=== PATIENT | male | born 1970 | race African-American/Black ===

== ENCOUNTER 2016-10-28 07:22 | Inpatient (IN) | payer MEDICAID ==
[~2016-10-28] VITALS: Ht 195.6 cm; Wt 93.6 kg
--- NOTE | 2016-10-28 07:50 | Emergency Room Report ---
History of Present Illness General Chief Complaint: General Complaint Source: Patient, EMS Present Illness HPI Patient has a history of bipolar disorder CHF and asthma. Patient also has history hypertension. Patient presents emergency department today complaining of acute onset of chest pain. He states that he's had chest pain for a few days. He was seen at [facility] where he was admitted per his report. He states that he had a negative workup and was discharged. However they did not discharge him with any medications. He has been homeless since then. He complains of bilateral leg swelling. Complains of some shortness of breath and chest discomfort now. Denies any fever nausea vomiting diarrhea chills. Symptoms noted to be moderate to severe. Patient was brought in by paramedics.No other modifying factors. No other associated signs and symptoms. No other complaints were noted. Allergies: Coded Allergies: HYDROMORPHONE (Verified Allergy, Unknown, 10/28/16) Patient History Past Medical History: HTN, CHF, asthma, psych hx Past Surgical History: none Pertinent Family History: none Social History: Reports: alcohol use, smoking Reviewed Nursing Documentation: PMH: Agreed, PSxH: Agreed Nursing Documentation-PMH Past Medical History: No History, Except For Hx Hypertension: Yes Hx Asthma: Yes Review of Systems All Other Systems: negative except mentioned in HPI Physical Exam Vital Signs Date Time Temp Pulse Resp B/P Pulse Ox O2 Delivery O2 Flow Rate FiO2 10/28/16 07:07 96.8 97 16 131/98 100 Room Air Sp02 EP Interpretation: reviewed, normal General Appearance: normal inspection, well appearing, no apparent distress, alert Head: atraumatic Eyes: bilateral eye normal inspection ENT: normal ENT inspection, hearing grossly normal, normal voice Neck: normal inspection, full range of motion, supple, no bony tend Respiratory: normal inspection, lungs clear, normal breath sounds, no respiratory distress, no retraction, no wheezing Cardiovascular #1: regular rate, rhythm, no edema Gastrointestinal: normal inspection, normal bowel sounds, non tender, soft, no guarding, no hernia Genitourinary: no CVA tenderness Musculoskeletal: back normal, normal range of motion, swelling - Bilateral lower extremity Neurologic: normal inspection, alert, responsive, speech normal Psychiatric: normal inspection, judgement/insight normal, depressed affect Skin: normal inspection, normal color, no rash Medical Decision Making Diagnostic Impression: Primary Impression: ACS (acute coronary syndrome) Additional Impression: Acute CHF (congestive heart failure) ER Course Patient presented to the emergency department today complaining of chest pain. Differential diagnoses include acute coronary syndrome, pulmonary embolism, pneumothorax, chest wall pain, pleurisy, pericarditis, acute anxiety reaction , acute CHF just to name a few. Given the severity of the patient's presentation I felt this is a highly complex patient. This patient required extensive workup. CBC, chemistry, EKG, chest x-ray, cardiac enzymes, liver profile were all obtained. 12-lead EKG performed for nontraumatic chest pain. PQRS documentation: EKG was performed. Please refer to below for interpretation. Patient laboratory workup shows elevated BNP. Patient's chest x-ray shows evidence of congestive heart failure. Given patient's symptoms at the patient require admission. Case was discussed in detail with Dr. Mujica. Patient will be admitted to telemetry for further treatment. Labs Test 10/28/16 08:09 White Blood Count 5.2 K/UL (4.8-10.8) Red Blood Count 4.29 M/UL (4.70-6.10) Hemoglobin 11.4 G/DL (14.2-18.0) Hematocrit 38.3 % (42.0-52.0) Mean Corpuscular Volume 89 FL (80-99) Mean Corpuscular Hemoglobin 26.6 PG (27.0-31.0) Mean Corpuscular Hemoglobin Concent 29.7 G/DL (32.0-36.0) Red Cell Distribution Width 17.4 % (11.6-14.8) Platelet Count 226 K/UL (150-450) Mean Platelet Volume 6.3 FL (6.5-10.1) Neutrophils (%) (Auto) 54.7 % (45.0-75.0) Lymphocytes (%) (Auto) 33.0 % (20.0-45.0) Monocytes (%) (Auto) 9.1 % (1.0-10.0) Eosinophils (%) (Auto) 0.8 % (0.0-3.0) Basophils (%) (Auto) 2.4 % (0.0-2.0) Urine Color Yellow Urine Appearance Clear Urine pH 6 (4.5-8.0) Urine Specific [place] 1.020 (1.005-1.035) Urine Protein 3+ (NEGATIVE) Urine Glucose (UA) Negative (NEGATIVE) Urine Ketones Negative (NEGATIVE) Urine Occult Blood Negative (NEGATIVE) Urine Nitrite Negative (NEGATIVE) Urine Bilirubin Negative (NEGATIVE) Urine Urobilinogen 4 MG/DL (0.0-1.0) Urine Leukocyte Esterase Negative (NEGATIVE) Urine RBC 0-2 /HPF (0 - 0) Urine WBC 0-2 /HPF (0 - 0) Urine Squamous Epithelial Cells Occasional /LPF Urine Bacteria Occasional /HPF (NONE) Sodium Level 139 mEQ/L (135-145) Potassium Level 4.7 mEQ/L (3.4-4.9) Chloride Level 101 mEQ/L (98-107) Carbon Dioxide Level 25 mEQ/L (20-30) Anion Gap 13 (5-15) Blood Urea Nitrogen 25 mg/dL (7-23) Creatinine 1.0 mg/dL (0.7-1.2) Estimat Glomerular Filtration Rate > 60 mL/min (>60) Glucose Level 88 mg/dL (74-106) Calcium Level 9.5 mg/dL (8.6-10.2) Total Bilirubin 0.8 mg/dL (0.0-1.2) Aspartate Amino Transf (AST/SGOT) 40 U/L (5-40) Alanine Aminotransferase (ALT/SGPT) 19 U/L (3-41) Alkaline Phosphatase 119 U/L (40-129) Total Creatine Kinase 521 U/L (38-174) Creatine Kinase MB 4.2 ng/mL (< 6.7) Creatine Kinase MB Relative Index 0.8 Troponin I < 0.30 ng/mL (<=0.30) Pro-B-Type Natriuretic Peptide 2616 pg/mL (0-125) Total Protein 7.9 g/dL (6.6-8.7) Albumin 4.2 g/dL (3.5-5.2) Globulin 3.7 g/dL Albumin/Globulin Ratio 1.1 (1.0-2.7) Lipase 39 U/L (< 60) Urine Opiates Screen Negative (NEGATIVE) Urine Barbiturates Screen Negative (NEGATIVE) Phencyclidine (PCP) Screen Negative (NEGATIVE) Urine Amphetamines Screen Positive (NEGATIVE) Urine Benzodiazepines Screen Negative (NEGATIVE) Urine Cocaine Screen Negative (NEGATIVE) Urine Marijuana (THC) Screen Positive (NEGATIVE) EKG Diagnostic Results Rate: normal Rhythm: NSR ST Segments: no acute changes Rhythm Strip Diag. Results EP Interpretation: yes Rate: 99 Rhythm: NSR, no PVC's, no ectopy Chest X-Ray Diagnostic Results Chest X-Ray Diagnostic Results : Chest X-Ray Ordered: Yes # of Views/Limited/Complete: 1 View Indication: Chest Pain EP Interpretation: Yes Interpretation: no consolidation, no pneumothorax, other - pul congestion Impression: Other - chf Interpreting ER Provider: Electronically signed by Patt Matta MD Last Vital Signs Date Time Temp Pulse Resp B/P Pulse Ox O2 Delivery O2 Flow Rate FiO2 10/28/16 07:07 96.8 97 16 131/98 100 Room Air Status: improved Disposition: ADMITTED INPATIENT Condition: Serious PATT MATTA M.D. Oct 28, 2016 07:50
[2016-10-28] MEDS ORDERED: FUROSEMIDE20 M1 ORAL (08:10)
[2016-10-28] MEDS ORDERED: SIMVASTATIN20 MG ORAL (08:10)
[2016-10-28] MEDS ORDERED: ASPIRIN81 MG ORAL (08:10)
[2016-10-28] MEDS ORDERED: LISINOPRIL20 MG ORAL (08:10)
[2016-10-28] MEDS ORDERED: RISPERDAL1 MG PO (08:10)
[2016-10-28] MEDS ORDERED: CARVEDILOL25 MG ORAL (08:10)
[2016-10-28 08:28] VITALS: BP 124/92
[2016-10-28 08:34] LABS: BASOPHILS % (AUTO) 2.4 % (0.0-2.0); EOSINOPHILS % (AUTO) 0.8 % (0.0-3.0); MEAN CORPUSCULAR HEMOGLOBIN 26.6 PG (27.0-31.0); MEAN CORPUSCULAR HGB CONC 29.7 G/DL (32.0-36.0); MEAN CORPUSCULAR VOLUME 89 FL (80-99); MEAN PLATELET VOLUME 6.3 FL (6.5-10.1); MONOCYTES % (AUTO) 9.1 % (1.0-10.0); NEUTROPHILS % (AUTO) 54.7 % (45.0-75.0); PLATELET COUNT 226 K/UL (150-450); RED BLOOD COUNT 4.29 M/UL (4.70-6.10); RED CELL DISTRIBUTION WIDTH 17.4 % (11.6-14.8); WHITE BLOOD COUNT 5.2 K/UL (4.8-10.8)
[2016-10-28 08:46] LABS: APPEARANCE,URINE CLEAR; KETONES,URINE NEGATIVE (NEGATIVE); LEUKOCYTE ESTERASE ,URINE NEGATIVE (NEGATIVE); NITRITE,URINE NEGATIVE (NEGATIVE); PH,URINE 6 (4.5-8.0); PROTEIN,URINE 3+ (NEGATIVE); UROBILINOGEN,URINE 4 MG/DL (0.0-1.0)
[2016-10-28 08:48] LABS: ALANINE AMINOTRANSFERASE 19 U/L (3-41); ALBUMIN/GLOBULIN RATIO 1.1 (1.0-2.7); ANION GAP 13 (5-15); ASPARTATE AMINO TRANSFERASE 40 U/L (5-40); CALCIUM 9.5 mg/dL (8.6-10.2); CARBON DIOXIDE 25 mEQ/L (20-30); CHLORIDE 101 mEQ/L (98-107); GLOMERULAR FILTRATION RATE > 60 mL/min (>60); HEMOLYSIS 42; LIPASE 39 U/L (< 60); POTASSIUM 4.7 mEQ/L (3.4-4.9); SODIUM 139 mEQ/L (135-145); TOTAL PROTEIN 7.9 g/dL (6.6-8.7)
[2016-10-28 08:56] LABS: TROPONIN I < 0.30 ng/mL (<=0.30)
[2016-10-28 09:06] LABS: CKMB 4.2 ng/mL (< 6.7)
[2016-10-28 09:14] LABS: BACTERIA,URINE OCCASIONAL /HPF; RBC,URINE 0-2 /HPF (0 - 0); SQUAMOUS EPITHELIAL CELL,UR OCCASIONAL /LPF (NONE/OCC); WBC,URINE 0-2 /HPF (0 - 0)
[2016-10-28] MEDS ORDERED: Nitroglycerin 2% oint pkt TOPIC ONE (10:00)
[2016-10-28] MEDS ORDERED: Nitroglycerin Subl 0.4mg tab (Bottle Of 25) SL PRN (10:15)
[2016-10-28] MEDS ORDERED: Ketorolac 30mg Inj IV PRN (10:15)
[2016-10-28] MEDS ORDERED: Enalaprilat 2.5mg/2ml Inj IV PRN (10:15)
[2016-10-28] MEDS ORDERED: Diltiazem 25mg/5ml IV PRN (10:15)
[2016-10-28] MEDS ORDERED: Miralax 17gm pkt ORAL PRN (10:15)
[2016-10-28] MEDS ORDERED: DuoNeb 0.5-3(2.5)mg/3ml neb HHN PRN (10:15)
--- NOTE | 2016-10-28 12:02 | Diagnostic Imaging Report ---
Indication: PAIN Technique: One view of the chest Comparison: none Findings: The heart is enlarged. Lungs and pleural spaces are clear. Impression: Cardiomegaly No acute process
[2016-10-28 12:03] VITALS: BP 124/100
[2016-10-28 13:27] VITALS: BP 127/98
--- NOTE | 2016-10-28 14:56 | History and Physical ---
History of Present Illness General Date patient seen: Oct 28, 2016 Reason for Hospitalization: General Complaint Present Illness HPI 45 year old male with history of bipolar disorder CHF and asthma, hypertension presented to emergency department today complaining of acute onset of chest pain. He states that he's had chest pain for a few days. He was seen at [facility] where he was admitted per his report. He complains of bilateral leg swelling, some shortness of breath and chest discomfort now. Pt is admitted to telemetry for cardiac work up. Allergies: Coded Allergies: HYDROMORPHONE (Verified Allergy, Unknown, 10/28/16) Medication History Scheduled Aspirin* (Aspirin*), 81 MG ORAL DAILY, (Reported) Carvedilol* (Carvedilol*), 20 MG ORAL DAILY, (Reported) Furosemide* (Lasix*), 25 MG ORAL DAILY, (Reported) Lisinopril (Lisinopril*), 40 MG ORAL BID, (Reported) Risperidone* (Risperdal*), 1 MG PO BID, (Reported) Simvastatin (Zocor), 20 MG ORAL BEDTIME, (Reported) Patient History Healthcare decision maker Resuscitation status Advanced Directive on File Past Medical/Surgical History Past Medical/Surgical History: (1) Homelessness (2) History of asthma Review of Systems All Other Systems: negative except mentioned in HPI Physical Exam General Appearance: WD/WN, alert Lines, tubes and drains: peripheral HEENT: normocephalic Neck: non-tender, normal alignment Respiratory/Chest: chest wall non-tender, lungs clear Cardiovascular/Chest: normal peripheral pulses Abdomen: normal bowel sounds, non tender Genitourinary/Rectal: normal genital exam Extremities: normal range of motion Last 24 Hour Vital Signs Date Time Temp Pulse Resp B/P Pulse Ox O2 Delivery O2 Flow Rate FiO2 10/28/16 14:17 99 10/28/16 13:27 97.3 100 22 127/98 100 Room Air 10/28/16 13:27 97.3 100 22 127/98 100 Room Air 10/28/16 12:03 97.2 109 21 124/100 100 Room Air 10/28/16 11:11 97.2 10/28/16 09:58 140/93 10/28/16 08:28 97.1 89 15 124/92 100 Room Air 10/28/16 07:07 96.8 97 16 131/98 100 Room Air Laboratory Tests Test 10/28/16 08:09 White Blood Count 5.2 K/UL (4.8-10.8) Red Blood Count 4.29 M/UL (4.70-6.10) L Hemoglobin 11.4 G/DL (14.2-18.0) L Hematocrit 38.3 % (42.0-52.0) L Mean Corpuscular Volume 89 FL (80-99) Mean Corpuscular Hemoglobin 26.6 PG (27.0-31.0) L Mean Corpuscular Hemoglobin Concent 29.7 G/DL (32.0-36.0) L Red Cell Distribution Width 17.4 % (11.6-14.8) H Platelet Count 226 K/UL (150-450) Mean Platelet Volume 6.3 FL (6.5-10.1) L Neutrophils (%) (Auto) 54.7 % (45.0-75.0) Lymphocytes (%) (Auto) 33.0 % (20.0-45.0) Monocytes (%) (Auto) 9.1 % (1.0-10.0) Eosinophils (%) (Auto) 0.8 % (0.0-3.0) Basophils (%) (Auto) 2.4 % (0.0-2.0) H Urine Color Yellow Urine Appearance Clear Urine pH 6 (4.5-8.0) Urine Specific [place] 1.020 (1.005-1.035) Urine Protein 3+ (NEGATIVE) H Urine Glucose (UA) Negative (NEGATIVE) Urine Ketones Negative (NEGATIVE) Urine Occult Blood Negative (NEGATIVE) Urine Nitrite Negative (NEGATIVE) Urine Bilirubin Negative (NEGATIVE) Urine Urobilinogen 4 MG/DL (0.0-1.0) H Urine Leukocyte Esterase Negative (NEGATIVE) Urine RBC 0-2 /HPF (0 - 0) H Urine WBC 0-2 /HPF (0 - 0) Urine Squamous Epithelial Cells Occasional /LPF Urine Bacteria Occasional /HPF (NONE) Sodium Level 139 mEQ/L (135-145) Potassium Level 4.7 mEQ/L (3.4-4.9) Chloride Level 101 mEQ/L (98-107) Carbon Dioxide Level 25 mEQ/L (20-30) Anion Gap 13 (5-15) Blood Urea Nitrogen 25 mg/dL (7-23) H Creatinine 1.0 mg/dL (0.7-1.2) Estimat Glomerular Filtration Rate > 60 mL/min (>60) Glucose Level 88 mg/dL (74-106) Calcium Level 9.5 mg/dL (8.6-10.2) Total Bilirubin 0.8 mg/dL (0.0-1.2) Aspartate Amino Transf (AST/SGOT) 40 U/L (5-40) Alanine Aminotransferase (ALT/SGPT) 19 U/L (3-41) Alkaline Phosphatase 119 U/L (40-129) Total Creatine Kinase 521 U/L (38-174) H Creatine Kinase MB 4.2 ng/mL (< 6.7) Creatine Kinase MB Relative Index 0.8 Troponin I < 0.30 ng/mL (<=0.30) Pro-B-Type Natriuretic Peptide 2616 pg/mL (0-125) H Total Protein 7.9 g/dL (6.6-8.7) Albumin 4.2 g/dL (3.5-5.2) Globulin 3.7 g/dL Albumin/Globulin Ratio 1.1 (1.0-2.7) Lipase 39 U/L (< 60) Urine Opiates Screen Negative (NEGATIVE) Urine Barbiturates Screen Negative (NEGATIVE) Phencyclidine (PCP) Screen Negative (NEGATIVE) Urine Amphetamines Screen Positive (NEGATIVE) H Urine Benzodiazepines Screen Negative (NEGATIVE) Urine Cocaine Screen Negative (NEGATIVE) Urine Marijuana (THC) Screen Positive (NEGATIVE) H Height (Feet): 6 Height (Inches): 5.00 Weight (Pounds): 195 Medications Current Medications Medications (Trade) Dose Ordered Sig/Johnie Route PRN Reason Start Time Stop Time Status Last Admin Dose Admin Acetaminophen (Tylenol) 650 mg Q4H PRN ORAL FEVER 10/28/16 10:15 11/27/16 10:14 Albuterol/ Ipratropium (DuoNeb 0.5-3(2.5)mg/3ml) 3 ml EVERY 4 HOURS PRN HHN Shortness of Breath 10/28/16 10:15 11/02/16 10:14 Aspirin (ASA) 162 mg DAILY ORAL 10/29/16 09:00 11/28/16 08:59 Carvedilol (Coreg) 20 mg DAILY ORAL 10/29/16 09:00 11/28/16 08:59 Diltiazem HCl (Cardizem) 10 mg EVERY HOUR PRN IV heart rate more than 120, 10/28/16 10:15 11/27/16 10:14 Enalaprilat (Vasotec) 2.5 mg EVERY 6 HOURS PRN IV sbp more than 160 10/28/16 10:15 11/27/16 10:14 Furosemide (Lasix) 25 mg DAILY ORAL 10/29/16 09:00 11/28/16 08:59 Heparin Sodium (Porcine) (Heparin 5000 units/ml) 5,000 units EVERY 12 HOURS SUBQ 10/28/16 21:00 11/27/16 20:59 Ketorolac Tromethamine (Toradol 30mg) 30 mg Q6HR PRN IV moderate pain ( 4-6) 10/28/16 10:15 11/02/16 10:14 10/28/16 10:41 Lisinopril (Prinivil) 40 mg BID ORAL 10/28/16 18:00 11/27/16 17:59 Nitroglycerin (Ntg) 0.4 mg q5 mins PRN SL Prn Chest Pain 10/28/16 10:15 11/27/16 10:14 Ondansetron HCl (Zofran) 4 mg Q6H PRN IVP Nausea & Vomiting 10/28/16 10:15 11/27/16 10:14 Pantoprazole (Protonix) 40 mg DAILY ORAL 10/29/16 09:00 11/28/16 08:59 Polyethylene Glycol (Miralax) 17 gm DAILYPRN PRN ORAL Constipation 10/28/16 10:15 11/27/16 10:14 Risperidone (RisperDAL) 1 mg BID ORAL 10/28/16 18:00 11/27/16 17:59 Temazepam (Restoril) 15 mg HSPRN PRN ORAL Insomnia 10/28/16 10:15 11/04/16 10:14 Assessment/Plan Problem List: (1) Acute CHF (congestive heart failure) ICD Codes: I50.9 - Heart failure, unspecified SNOMED: 45572530 (2) ACS (acute coronary syndrome) ICD Codes: I24.9 - Acute ischemic heart disease, unspecified SNOMED: 155276094 (3) History of asthma ICD Codes: Z87.09 - Personal history of other diseases of the respiratory system SNOMED: 001301130 (4) Homelessness ICD Codes: Z59.0 - Homelessness SNOMED: 75978918 Assessment/Plan serial troponin, ekg echo cardiology to see respiratory treatment. JAXON HOLLINGSWORTH Oct 28, 2016 14:56
[2016-10-28 16:00] VITALS: BP 126/85
--- NOTE | 2016-10-28 17:44 | Cardiology Progress Note ---
Assessment/Plan Assessment/Plan [id number] chf cm med non adherence due to isnruance mr tr p htn htn Objective Last 24 Hour Vital Signs Date Time Temp Pulse Resp B/P Pulse Ox O2 Delivery O2 Flow Rate FiO2 10/28/16 16:00 97.4 60 20 126/85 98 Nasal Cannula 2.0 10/28/16 16:00 97 10/28/16 14:17 99 10/28/16 13:27 97.3 100 22 127/98 100 Room Air 10/28/16 13:27 97.3 100 22 127/98 100 Room Air 10/28/16 12:03 97.2 109 21 124/100 100 Room Air 10/28/16 11:11 97.2 10/28/16 09:58 140/93 10/28/16 08:28 97.1 89 15 124/92 100 Room Air 10/28/16 07:07 96.8 97 16 131/98 100 Room Air Laboratory Tests Test 10/28/16 08:09 White Blood Count 5.2 K/UL (4.8-10.8) Red Blood Count 4.29 M/UL (4.70-6.10) L Hemoglobin 11.4 G/DL (14.2-18.0) L Hematocrit 38.3 % (42.0-52.0) L Mean Corpuscular Volume 89 FL (80-99) Mean Corpuscular Hemoglobin 26.6 PG (27.0-31.0) L Mean Corpuscular Hemoglobin Concent 29.7 G/DL (32.0-36.0) L Red Cell Distribution Width 17.4 % (11.6-14.8) H Platelet Count 226 K/UL (150-450) Mean Platelet Volume 6.3 FL (6.5-10.1) L Neutrophils (%) (Auto) 54.7 % (45.0-75.0) Lymphocytes (%) (Auto) 33.0 % (20.0-45.0) Monocytes (%) (Auto) 9.1 % (1.0-10.0) Eosinophils (%) (Auto) 0.8 % (0.0-3.0) Basophils (%) (Auto) 2.4 % (0.0-2.0) H Urine Color Yellow Urine Appearance Clear Urine pH 6 (4.5-8.0) Urine Specific [place] 1.020 (1.005-1.035) Urine Protein 3+ (NEGATIVE) H Urine Glucose (UA) Negative (NEGATIVE) Urine Ketones Negative (NEGATIVE) Urine Occult Blood Negative (NEGATIVE) Urine Nitrite Negative (NEGATIVE) Urine Bilirubin Negative (NEGATIVE) Urine Urobilinogen 4 MG/DL (0.0-1.0) H Urine Leukocyte Esterase Negative (NEGATIVE) Urine RBC 0-2 /HPF (0 - 0) H Urine WBC 0-2 /HPF (0 - 0) Urine Squamous Epithelial Cells Occasional /LPF Urine Bacteria Occasional /HPF (NONE) Sodium Level 139 mEQ/L (135-145) Potassium Level 4.7 mEQ/L (3.4-4.9) Chloride Level 101 mEQ/L (98-107) Carbon Dioxide Level 25 mEQ/L (20-30) Anion Gap 13 (5-15) Blood Urea Nitrogen 25 mg/dL (7-23) H Creatinine 1.0 mg/dL (0.7-1.2) Estimat Glomerular Filtration Rate > 60 mL/min (>60) Glucose Level 88 mg/dL (74-106) Calcium Level 9.5 mg/dL (8.6-10.2) Total Bilirubin 0.8 mg/dL (0.0-1.2) Aspartate Amino Transf (AST/SGOT) 40 U/L (5-40) Alanine Aminotransferase (ALT/SGPT) 19 U/L (3-41) Alkaline Phosphatase 119 U/L (40-129) Total Creatine Kinase 521 U/L (38-174) H Creatine Kinase MB 4.2 ng/mL (< 6.7) Creatine Kinase MB Relative Index 0.8 Troponin I < 0.30 ng/mL (<=0.30) Pro-B-Type Natriuretic Peptide 2616 pg/mL (0-125) H Total Protein 7.9 g/dL (6.6-8.7) Albumin 4.2 g/dL (3.5-5.2) Globulin 3.7 g/dL Albumin/Globulin Ratio 1.1 (1.0-2.7) Lipase 39 U/L (< 60) Urine Opiates Screen Negative (NEGATIVE) Urine Barbiturates Screen Negative (NEGATIVE) Phencyclidine (PCP) Screen Negative (NEGATIVE) Urine Amphetamines Screen Positive (NEGATIVE) H Urine Benzodiazepines Screen Negative (NEGATIVE) Urine Cocaine Screen Negative (NEGATIVE) Urine Marijuana (THC) Screen Positive (NEGATIVE) ARIELLA MACEDO Oct 28, 2016 17:44
[2016-10-28] MEDS ORDERED: Lisinopril 20mg tab ORAL SCH (18:00)
[2016-10-28] MEDS: Spironolactone 25mg tab ORAL SCH (18:27)
[2016-10-28 20:00] VITALS: BP 136/93
[2016-10-28] MEDS: Carvedilol 6.25mg Tab ORAL SCH (20:57)
[2016-10-28] MEDS: Heparin 5000 units/ml inj SUBQ SCH (20:58)
[2016-10-28 23:55] VITALS: BP 119/76
--- NOTE | 2016-10-29 00:46 | Consultation ---
DATE OF CONSULTATION: 10/28/2016 CARDIOLOGY CONSULTATION CONSULTING PHYSICIAN: Kevin Cleary M.D. REFERRING PHYSICIAN: Magaly Mujica M.D. REASON FOR REFERRAL: Congestive heart failure. HISTORY OF PRESENT ILLNESS: This is a very unfortunate 45-year-old gentleman, who tells me he was diagnosed with congestive heart failure related to some kind of congenital heart disease. His father recently from a heart problem and his sister has recently been diagnosed with heart failure. He has had congestive heart failure for approximately two years and has been on medications. He was recently hospitalized at [facility], took his medication, but when he was discharged home, he never got his medications back approximately three days ago. Subsequently, he has been living out on the streets, has been able to get his medications, and presented to the hospital here because of shortness of breath. He tried to get his medications from the pharmacy and his insurance would not cover his recurrent medication administration and he presented to the hospital. He has some pain in his chest, sharp sensation that go along with shortness of breath that he gets with his congestive heart failure. He does not have orthopnea, he does have PND and dyspnea on exertion. He has shortness of breath when he lays down, better when he sits up. He has dizziness when he sits up or stands up. He has not been really eating outside the hospital. His past medical history is positive for congestive heart failure, cardiomyopathy, and high blood pressure. No history of heart attack. No cancer, stroke, hepatitis, tuberculosis, asthma, or emphysema. No ulcers. No kidney, liver problems, thyroid problems, anemia, arthritis, or HIV or AIDS. No. He is allergic to Dilaudid. SOCIAL HISTORY: He smokes. He used to drink, but he does not drink any more, he does not smoke any more. He denies any drug use except for marijuana previously. He is homeless right now. REVIEW OF SYSTEMS: Gastrointestinal: He has had nausea and vomiting and diarrhea. Genitourinary: Negative. Pulmonary: Occasional coughing. Constitutional: Negative. Neurologic: Negative. PHYSICAL EXAMINATION: GENERAL: Shows a tall middle-aged gentleman, in no apparent respiratory distress. NECK: Supple. LUNGS: Show bilateral crackles noted. CARDIAC: Regular rate and rhythm. Holosystolic regurgitant murmur is noted. ABDOMEN: Soft and nontender. Positive bowel sounds. EXTREMITIES: There is no clubbing, cyanosis, nor is there any edema. NEUROLOGIC: He is awake, alert, responsive, and in no apparent respiratory distress. LABORATORY AND DIAGNOSTIC DATA: Laboratory Values: White count of 5.2, hemoglobin 11.4, and platelet count of 226,000. Sodium is 139, potassium 4.7, chloride 101, bicarbonate 25, BUN of 25, creatinine 1.0, and glucose of 88. His CK 521, proBNP is 2600, and troponin less than 0.03. Urinalysis is unremarkable. Toxicology screen positive for amphetamines as well as marijuana despite his . EKG is a sinus rhythm, normal QRS axis, and some nonspecific T-wave abnormalities. Echocardiogram preliminary reports severe left ventricular enlargement with global hypokinesis, ejection fraction 20 to 25%, small posterior pericardial effusion, biatrial enlargement, moderate right ventricular enlargement, dilated IVC, severe mitral regurgitation, severe tricuspid regurgitation, and pulmonary hypertension with PA pressure of 59. His chest x-ray was interpreted by the radiologist, cardiomegaly, lungs and pleural spaces are intact. ASSESSMENT: 1. Chest pain, atypical. 2. Congestive heart failure, acute systolic on chronic systolic. 3. Cardiomyopathy. 4. Mitral regurgitation, tricuspid regurgitation, and pulmonary hypertension. This patient was seen in cardiac consultation. The patient has symptoms of congestive heart failure, although he has been out on the street and he has not been eating or taking any medications. He will be back on his medication. He should have some diuretics to help with his acute congestive heart failure. FIDENCIO inhibitors and beta-blockers should be resumed. He should be back on his Aldactone as well. Further recommendations depending on how he does. His set of cardiac enzymes will be repeated in the morning. He indicates that he has had this chest pain before every time he has his congestive heart failure exacerbation and therefore may be related to that. I doubt that is the pericarditis with pericardial effusion that is the cause, although he does have a smaller. His blood pressure has been elevated as much as 140/93 to 126/85. His heart rates in the 60s. He may require in the future a defibrillator. Kevin Cleary M.D. DR: NAYELI JOB#: [id number] CC:
[2016-10-29 07:27] VITALS: BP 127/77
[2016-10-29] MEDS ORDERED: Carvedilol 12.5mg tab ORAL SCH (09:00)
[2016-10-29] MEDS ORDERED: Carvedilol 25mg Tab ORAL SCH (09:00)
[2016-10-29] MEDS: Aspirin Baby 81mg ORAL SCH (09:18)
[2016-10-29] MEDS: Spironolactone 25mg tab ORAL SCH (09:21)
[2016-10-29] MEDS: Lisinopril 20mg tab ORAL SCH (09:21)
[2016-10-29] MEDS: Carvedilol 6.25mg Tab ORAL SCH ×2 (09:21→20:35)
[2016-10-29] MEDS: Heparin 5000 units/ml inj SUBQ SCH ×2 (09:28→20:36)
[2016-10-29 10:31] LABS: EOSINOPHILS % (AUTO) 2.4 % (0.0-3.0); LYMPHOCYTES % (AUTO) 26.6 % (20.0-45.0); MEAN CORPUSCULAR HEMOGLOBIN 27.3 PG (27.0-31.0); MEAN CORPUSCULAR HGB CONC 30.9 G/DL (32.0-36.0); MEAN CORPUSCULAR VOLUME 88 FL (80-99); MEAN PLATELET VOLUME 6.8 FL (6.5-10.1); MONOCYTES % (AUTO) 16.5 % (1.0-10.0); NEUTROPHILS % (AUTO) 53.5 % (45.0-75.0); PLATELET COUNT 177 K/UL (150-450); RED BLOOD COUNT 3.63 M/UL (4.70-6.10); RED CELL DISTRIBUTION WIDTH 17.2 % (11.6-14.8); WHITE BLOOD COUNT 4.6 K/UL (4.8-10.8)
[2016-10-29 10:53] LABS: TROPONIN I < 0.30 ng/mL (<=0.30)
[2016-10-29 10:56] LABS: ANION GAP 14 (5-15); CALCIUM 8.8 mg/dL (8.6-10.2); CARBON DIOXIDE 23 mEQ/L (20-30); CHLORIDE 96 mEQ/L (98-107); CREATININE 1.5 mg/dL (0.7-1.2); GLOMERULAR FILTRATION RATE > 60 mL/min (>60); HEMOLYSIS 2; MAGNESIUM 1.6 mg/dL (1.7-2.5); POTASSIUM 4.3 mEQ/L (3.4-4.9); SODIUM 133 mEQ/L (135-145)
[2016-10-29 10:58] LABS: CHOLESTEROL 98 mg/dL (< 200); CRP QUANT < 0.3 mg/dL (< 0.5); HEMOLYSIS 4; LDL CHOLESTEROL (CALC.) 44 mg/dL (60-99)
[2016-10-29 11:01] LABS: INR 1.1 (0.9-1.1); PROTHROMBIN TIME 11.6 SEC (9.30-11.50)
[2016-10-29 11:41] VITALS: BP 110/60
--- NOTE | 2016-10-29 11:58 | Pulmonology Progress Note ---
Assessment/Plan Problems: (1) Acute CHF (congestive heart failure) (2) ACS (acute coronary syndrome) (3) Homelessness (4) ATN (acute tubular necrosis) (5) History of asthma Assessment/Plan stop diuretics check electrolytes in am. renal evaluation Subjective ROS Limited/Unobtainable: No Constitutional: Reports: no symptoms HEENT: Repors: no symptoms Allergies: Coded Allergies: HYDROMORPHONE (Verified Allergy, Unknown, 10/28/16) Objective Last 24 Hour Vital Signs Date Time Temp Pulse Resp B/P Pulse Ox O2 Delivery O2 Flow Rate FiO2 10/29/16 11:41 97.1 96 20 110/60 100 Nasal Cannula 3.0 10/29/16 09:21 101 127/77 10/29/16 09:21 127/77 10/29/16 07:27 96.6 101 20 127/77 100 Nasal Cannula 3.0 10/29/16 07:00 98 20 Nasal Cannula 2.0 10/28/16 23:55 97.2 94 20 119/76 98 Room Air 10/28/16 23:32 98 10/28/16 20:57 105 136/93 10/28/16 20:00 98.0 105 20 136/93 98 Room Air 10/28/16 19:13 96 22 100 2.0 10/28/16 19:13 99 22 100 10/28/16 19:13 104 10/28/16 19:11 96 22 Nasal Cannula 2.0 10/28/16 16:00 97.4 60 20 126/85 98 Nasal Cannula 2.0 10/28/16 16:00 97 10/28/16 14:17 99 10/28/16 13:27 97.3 100 22 127/98 100 Room Air 10/28/16 13:27 97.3 100 22 127/98 100 Room Air 10/28/16 12:03 97.2 109 21 124/100 100 Room Air Intake and Output 10/28/16 10/29/16 19:00 07:00 Intake Total 420 ml 500 ml Output Total 2000 ml Balance -1580 ml 500 ml Intake Oral 420 ml 500 ml Output Urine Total 2000 ml # Voids 6 3 # Bowel Movements 1 Objective locked himself up in the bathroom this morning, security had to remove him from the bath room. right now very grumpy and doesn't want to talk General Appearance: WD/WN HEENT: normocephalic Laboratory Tests 10/29/16 10:00: White Blood Count 4.6L, Red Blood Count 3.63L, Hemoglobin 9.9L, Hematocrit 32.1L , Mean Corpuscular Volume 88, Mean Corpuscular Hemoglobin 27.3, Mean Corpuscular Hemoglobin Concent 30.9L, Red Cell Distribution Width 17.2H, Platelet Count 177, Mean Platelet Volume 6.8, Neutrophils (%) (Auto) 53.5, Lymphocytes (%) (Auto) 26.6, Monocytes (%) (Auto) 16.5H, Eosinophils (%) (Auto) 2.4, Basophils (%) (Auto) 1.0, Prothrombin Time 11.6H, Prothromb Time International Ratio 1.1, Activated Partial Thromboplast Time 28, Sodium Level 133L, Potassium Level 4.3, Chloride Level 96L, Carbon Dioxide Level 23, Anion Gap 14, Blood Urea Nitrogen 40H, Creatinine 1.5H, Estimat Glomerular Filtration Rate > 60, Glucose Level 107H, Calcium Level 8.8, Magnesium Level 1.6L, Troponin I < 0.30, C-Reactive Protein, Quantitative < 0.3, Pro-B-Type Natriuretic Peptide 2784H, Triglycerides Level 28, Cholesterol Level 98, LDL Cholesterol 44L, HDL Cholesterol 48, Cholesterol/HDL Ratio 2.0L, Thyroid Stimulating Hormone (TSH) 1.750 Current Medications Medications (Trade) Dose Ordered Sig/Johnie Route PRN Reason Start Time Stop Time Status Last Admin Dose Admin Acetaminophen (Tylenol) 650 mg Q4H PRN ORAL Mild Pain/Temp > 100.5 10/29/16 02:30 11/28/16 02:29 10/29/16 09:25 Albuterol/ Ipratropium (DuoNeb 0.5-3(2.5)mg/3ml) 3 ml EVERY 4 HOURS PRN HHN Shortness of Breath 10/28/16 10:15 11/02/16 10:14 10/28/16 18:54 Aspirin (ASA) 162 mg DAILY ORAL 10/29/16 09:00 11/28/16 08:59 10/29/16 09:18 Carvedilol (Coreg) 6.25 mg EVERY 12 HOURS ORAL 10/28/16 21:00 11/27/16 20:59 10/29/16 09:21 Diltiazem HCl (Cardizem) 10 mg EVERY HOUR PRN IV heart rate more than 120, 10/28/16 10:15 11/27/16 10:14 Enalaprilat (Vasotec) 2.5 mg EVERY 6 HOURS PRN IV sbp more than 160 10/28/16 10:15 11/27/16 10:14 Furosemide (Lasix) 20 mg EVERY 12 HOURS IV 10/28/16 20:00 11/27/16 19:59 10/29/16 09:19 Heparin Sodium (Porcine) (Heparin 5000 units/ml) 5,000 units EVERY 12 HOURS SUBQ 10/28/16 21:00 11/27/16 20:59 10/29/16 09:28 Ketorolac Tromethamine (Toradol 30mg) 30 mg Q6HR PRN IV moderate pain ( 4-6) 10/28/16 10:15 11/02/16 10:14 10/28/16 10:41 Lisinopril (Prinivil) 40 mg DAILY ORAL 10/29/16 09:00 11/28/16 08:59 10/29/16 09:21 Nitroglycerin (Ntg) 0.4 mg q5 mins PRN SL Prn Chest Pain 10/28/16 10:15 11/27/16 10:14 Ondansetron HCl (Zofran) 4 mg Q6H PRN IVP Nausea & Vomiting 10/28/16 10:15 11/27/16 10:14 Pantoprazole (Protonix) 40 mg DAILY ORAL 10/29/16 09:00 11/28/16 08:59 10/29/16 09:18 Polyethylene Glycol (Miralax) 17 gm DAILYPRN PRN ORAL Constipation 10/28/16 10:15 11/27/16 10:14 Risperidone (RisperDAL) 1 mg BID ORAL 10/28/16 18:00 11/27/16 17:59 10/29/16 09:22 Spironolactone (Aldactone) 25 mg DAILY ORAL 10/28/16 18:00 11/27/16 17:59 10/29/16 09:21 Temazepam (Restoril) 15 mg HSPRN PRN ORAL Insomnia 10/28/16 10:15 11/04/16 10:14 JAXON HOLLINGSWORTH Oct 29, 2016 11:58
[2016-10-29 12:43] LABS: URIC ACID 8.9 mg/dL (3.0-7.5)
--- NOTE | 2016-10-29 13:17 | Cardiology Progress Note ---
Assessment/Plan Problem List: (1) Acute CHF (congestive heart failure) Status: stable, progressing Status Narrative Acute on chronic systolic heart failure - clinically improved w/ diuresis. ECHO w/ poor LV function. Probable nonischemic cm. Pulm hypertension Acute renal insufficiency - Assessment/Plan Diuretics held due to rising BUN/cR Continue lisinopril, coreg. Continue telemetry monitoring. Renal evaluation pending. Subjective ROS Limited/Unobtainable: No Subjective No c/o CP, dyspnea Objective Last 24 Hour Vital Signs Date Time Temp Pulse Resp B/P Pulse Ox O2 Delivery O2 Flow Rate FiO2 10/29/16 11:41 97.1 96 20 110/60 100 Nasal Cannula 3.0 10/29/16 11:29 102 10/29/16 09:21 101 127/77 10/29/16 09:21 127/77 10/29/16 07:32 94 10/29/16 07:27 96.6 101 20 127/77 100 Nasal Cannula 3.0 10/29/16 07:00 98 20 Nasal Cannula 2.0 10/28/16 23:55 97.2 94 20 119/76 98 Room Air 10/28/16 23:32 98 10/28/16 20:57 105 136/93 10/28/16 20:00 98.0 105 20 136/93 98 Room Air 10/28/16 19:13 96 22 100 2.0 10/28/16 19:13 99 22 100 10/28/16 19:13 104 10/28/16 19:11 96 22 Nasal Cannula 2.0 10/28/16 16:00 97.4 60 20 126/85 98 Nasal Cannula 2.0 10/28/16 16:00 97 10/28/16 14:17 99 10/28/16 13:27 97.3 100 22 127/98 100 Room Air 10/28/16 13:27 97.3 100 22 127/98 100 Room Air General Appearance: WD/WN, no apparent distress, alert EENT: PERRL/EOMI Neck: supple, JVD - JVD to angle of jaw Cardiovascular: normal rate, regular rhythm, systolic murmur - i v/i HSM along LSB radiating to apex, gallop/S3 Respiratory/Chest: lungs clear Abdomen: non tender, soft Extremities: non-tender, no swelling Intake and Output 10/28/16 10/29/16 19:00 07:00 Intake Total 420 ml 500 ml Output Total 2000 ml Balance -1580 ml 500 ml Intake Oral 420 ml 500 ml Output Urine Total 2000 ml # Voids 6 3 # Bowel Movements 1 Laboratory Tests Test 10/29/16 10:00 White Blood Count 4.6 K/UL (4.8-10.8) L Red Blood Count 3.63 M/UL (4.70-6.10) L Hemoglobin 9.9 G/DL (14.2-18.0) L Hematocrit 32.1 % (42.0-52.0) L Mean Corpuscular Volume 88 FL (80-99) Mean Corpuscular Hemoglobin 27.3 PG (27.0-31.0) Mean Corpuscular Hemoglobin Concent 30.9 G/DL (32.0-36.0) L Red Cell Distribution Width 17.2 % (11.6-14.8) H Platelet Count 177 K/UL (150-450) Mean Platelet Volume 6.8 FL (6.5-10.1) Neutrophils (%) (Auto) 53.5 % (45.0-75.0) Lymphocytes (%) (Auto) 26.6 % (20.0-45.0) Monocytes (%) (Auto) 16.5 % (1.0-10.0) H Eosinophils (%) (Auto) 2.4 % (0.0-3.0) Basophils (%) (Auto) 1.0 % (0.0-2.0) Prothrombin Time 11.6 SEC (9.30-11.50) H Prothromb Time International Ratio 1.1 (0.9-1.1) Activated Partial Thromboplast Time 28 SEC (23-33) Sodium Level 133 mEQ/L (135-145) L Potassium Level 4.3 mEQ/L (3.4-4.9) Chloride Level 96 mEQ/L (98-107) L Carbon Dioxide Level 23 mEQ/L (20-30) Anion Gap 14 (5-15) Blood Urea Nitrogen 40 mg/dL (7-23) H Creatinine 1.5 mg/dL (0.7-1.2) H Estimat Glomerular Filtration Rate > 60 mL/min (>60) Glucose Level 107 mg/dL (74-106) H Uric Acid 8.9 mg/dL (3.0-7.5) H Calcium Level 8.8 mg/dL (8.6-10.2) Magnesium Level 1.6 mg/dL (1.7-2.5) L Total Creatine Kinase 324 U/L (38-174) H Troponin I < 0.30 ng/mL (<=0.30) C-Reactive Protein, Quantitative < 0.3 mg/dL (< 0.5) Pro-B-Type Natriuretic Peptide 2784 pg/mL (0-125) H Triglycerides Level 28 mg/dL (< 150) Cholesterol Level 98 mg/dL (< 200) LDL Cholesterol 44 mg/dL (60-99) L HDL Cholesterol 48 mg/dL (> 60) Cholesterol/HDL Ratio 2.0 (3.3-4.4) L Thyroid Stimulating Hormone (TSH) 1.750 uIU/mL (0.300-4.500) ISABEL DELACRUZ Oct 29, 2016 13:17
[2016-10-29 15:08] LABS: APPEARANCE,URINE CLEAR; KETONES,URINE NEGATIVE (NEGATIVE); LEUKOCYTE ESTERASE ,URINE NEGATIVE (NEGATIVE); NITRITE,URINE NEGATIVE (NEGATIVE); PH,URINE 5 (4.5-8.0); PROTEIN,URINE NEGATIVE (NEGATIVE); UROBILINOGEN,URINE NORMAL MG/DL (0.0-1.0)
[2016-10-29 15:16] LABS: RBC,URINE 0-2 /HPF (0 - 0); WBC,URINE 0-2 /HPF (0 - 0)
[2016-10-29 15:26] VITALS: BP 126/90
[2016-10-29 20:00] VITALS: BP 113/73
[2016-10-30 04:00] VITALS: BP 112/75
[2016-10-30 07:44] VITALS: BP 119/76
[2016-10-30] MEDS: Aspirin Baby 81mg ORAL SCH (09:38)
[2016-10-30] MEDS: Carvedilol 6.25mg Tab ORAL SCH (09:39)
[2016-10-30] MEDS: Spironolactone 25mg tab ORAL SCH (09:39)
[2016-10-30] MEDS: Lisinopril 20mg tab ORAL SCH (09:40)
[2016-10-30] MEDS: Heparin 5000 units/ml inj SUBQ SCH ×2 (09:45→20:33)
[2016-10-30 10:48] LABS: TROPONIN I < 0.30 ng/mL (<=0.30)
[2016-10-30 11:30] LABS: BASOPHILS % (AUTO) 2.2 % (0.0-2.0); EOSINOPHILS % (AUTO) 1.1 % (0.0-3.0); LYMPHOCYTES % (AUTO) 22.2 % (20.0-45.0); MEAN CORPUSCULAR HEMOGLOBIN 26.5 PG (27.0-31.0); MEAN CORPUSCULAR HGB CONC 30.1 G/DL (32.0-36.0); MEAN CORPUSCULAR VOLUME 88 FL (80-99); MEAN PLATELET VOLUME 6.9 FL (6.5-10.1); MONOCYTES % (AUTO) 18.1 % (1.0-10.0); NEUTROPHILS % (AUTO) 56.4 % (45.0-75.0); PLATELET COUNT 198 K/UL (150-450); RED BLOOD COUNT 3.93 M/UL (4.70-6.10); RED CELL DISTRIBUTION WIDTH 17.1 % (11.6-14.8); WHITE BLOOD COUNT 5.4 K/UL (4.8-10.8)
[2016-10-30 11:45] LABS: ALANINE AMINOTRANSFERASE 16 U/L (3-41); ALBUMIN/GLOBULIN RATIO 1.2 (1.0-2.7); ANION GAP 12 (5-15); ASPARTATE AMINO TRANSFERASE 26 U/L (5-40); CARBON DIOXIDE 22 mEQ/L (20-30); CHLORIDE 100 mEQ/L (98-107); CREATININE 1.1 mg/dL (0.7-1.2); GLOMERULAR FILTRATION RATE > 60 mL/min (>60); HEMOLYSIS 3; POTASSIUM 4.5 mEQ/L (3.4-4.9); SODIUM 134 mEQ/L (135-145); TOTAL PROTEIN 6.6 g/dL (6.6-8.7)
--- NOTE | 2016-10-30 11:45 | Consultation ---
Consult Note Consult Note Patient has a history of bipolar disorder CHF and asthma. Patient also has history hypertension. Patient presents emergency department today complaining of acute onset of chest pain. He states that he's had chest pain for a few days. He was seen at [facility] where he was admitted per his report. He states that he had a negative workup and was discharged. However they did not discharge him with any medications. He has been homeless since then. He complains of bilateral leg swelling. Complains of some shortness of breath and chest discomfort now. Denies any fever nausea vomiting diarrhea chills. Symptoms noted to be moderate to severe. Patient was brought in by paramedics.No other modifying factors. No other associated signs and symptoms. No other complaints were noted. Allergies: HYDROMORPHONE (Verified Allergy, Unknown, 10/28/16) Past Medical History: HTN, CHF, asthma, psych hx Hx Hypertension: Yes Hx Asthma: Yes Assessment/Plan Renal Failure- CHF , CardioMyopathy h/o MR TR HTN and Pul HTN Plan; adjust meds- Avoid Nephrotoxics- Urine studies Monitor renal parameters Optimize cardiac and pul status ANTHONY CORNEJO Oct 30, 2016 11:45
--- NOTE | 2016-10-30 12:02 | Pulmonology Progress Note ---
Assessment/Plan Problems: (1) Acute CHF (congestive heart failure) (2) ACS (acute coronary syndrome) (3) Homelessness (4) ATN (acute tubular necrosis) (5) History of asthma Assessment/Plan off diuretics check electrolytes in am. renal evaluation All medications and treatment were reviewed. med/surg Subjective ROS Limited/Unobtainable: No Constitutional: Reports: no symptoms HEENT: Repors: no symptoms Allergies: Coded Allergies: HYDROMORPHONE (Verified Allergy, Unknown, 10/28/16) Objective Last 24 Hour Vital Signs Date Time Temp Pulse Resp B/P Pulse Ox O2 Delivery O2 Flow Rate FiO2 10/30/16 09:40 119/76 10/30/16 09:39 100 119/76 10/30/16 07:44 96.3 100 20 119/76 100 Room Air 10/30/16 07:31 101 20 Room Air 10/30/16 04:00 97.0 95 22 112/75 100 Room Air 10/30/16 04:00 104 10/30/16 00:00 103 10/29/16 20:35 98 116/76 10/29/16 20:00 97.0 92 24 113/73 100 Room Air 10/29/16 20:00 102 10/29/16 19:05 91 20 Nasal Cannula 2.0 28 10/29/16 15:34 103 10/29/16 15:26 96.0 90 20 126/90 100 Room Air Intake and Output 10/29/16 10/30/16 19:00 07:00 Intake Total 1120 ml Output Total 600 ml Balance 520 ml Intake Oral 1120 ml Output Urine Total 600 ml # Voids 3 # Bowel Movements 1 Objective locked himself up in the bathroom this morning, security had to remove him from the bath room. right now very grumpy and doesn't want to talk Microbiology Date/Time Source Procedure Growth Status 10/28/16 11:17 Nasal Nares MRSA Culture - Final NO METHICILLIN RESISTANT STAPH AUREUS... Complete 10/28/16 11:17 Rectum VRE Culture - Final NO VANCOMYCIN RESISTANT ENTEROCOCCUS ... Complete Laboratory Tests 10/29/16 14:00: Urine Color Pale yellow, Urine Appearance Clear, Urine pH 5, Urine Specific [place] 1.015, Urine Protein Negative, Urine Glucose (UA) Negative, Urine Ketones Negative, Urine Occult Blood Negative, Urine Nitrite Negative, Urine Bilirubin Negative, Urine Urobilinogen Normal, Urine Leukocyte Esterase Negative , Urine RBC 0-2H, Urine WBC 0-2, Urine Squamous Epithelial Cells None, Urine Bacteria None, Urine Eosinophils None seen, Urine Random Sodium 63, Urine Potassium Timed 41 10/30/16 10:00: White Blood Count 5.4, Red Blood Count 3.93L, Hemoglobin 10.4L, Hematocrit 34.6L , Mean Corpuscular Volume 88, Mean Corpuscular Hemoglobin 26.5L, Mean Corpuscular Hemoglobin Concent 30.1L, Red Cell Distribution Width 17.1H, Platelet Count 198, Mean Platelet Volume 6.9, Neutrophils (%) (Auto) 56.4, Lymphocytes (%) (Auto) 22.2, Monocytes (%) (Auto) 18.1H, Eosinophils (%) (Auto) 1.1, Basophils (%) (Auto) 2.2H, Sodium Level 134L, Potassium Level 4.5, Chloride Level 100, Carbon Dioxide Level 22, Anion Gap 12, Blood Urea Nitrogen 31H, Creatinine 1.1, Estimat Glomerular Filtration Rate > 60, Glucose Level 89, Calcium Level 9.0, Total Bilirubin 0.9, Aspartate Amino Transf (AST/SGOT) 26, Alanine Aminotransferase (ALT/SGPT) 16, Alkaline Phosphatase 105, Troponin I < 0.30, Total Protein 6.6, Albumin 3.6, Globulin 3.0, Albumin/Globulin Ratio 1.2 Current Medications Medications (Trade) Dose Ordered Sig/Johnie Route PRN Reason Start Time Stop Time Status Last Admin Dose Admin Acetaminophen (Tylenol) 650 mg Q4H PRN ORAL Mild Pain/Temp > 100.5 10/29/16 02:30 11/28/16 02:29 10/29/16 09:25 Albuterol/ Ipratropium (DuoNeb 0.5-3(2.5)mg/3ml) 3 ml EVERY 4 HOURS PRN HHN Shortness of Breath 10/28/16 10:15 11/02/16 10:14 10/28/16 18:54 Aspirin (ASA) 162 mg DAILY ORAL 10/29/16 09:00 11/28/16 08:59 10/30/16 09:38 Carvedilol (Coreg) 6.25 mg EVERY 12 HOURS ORAL 10/28/16 21:00 11/27/16 20:59 10/30/16 09:39 Diltiazem HCl (Cardizem) 10 mg EVERY HOUR PRN IV heart rate more than 120, 10/28/16 10:15 11/27/16 10:14 Heparin Sodium (Porcine) (Heparin 5000 units/ml) 5,000 units EVERY 12 HOURS SUBQ 10/28/16 21:00 11/27/16 20:59 10/30/16 09:45 Lisinopril (Prinivil) 40 mg DAILY ORAL 10/29/16 09:00 11/28/16 08:59 10/30/16 09:40 Nitroglycerin (Ntg) 0.4 mg q5 mins PRN SL Prn Chest Pain 10/28/16 10:15 11/27/16 10:14 Ondansetron HCl (Zofran) 4 mg Q6H PRN IVP Nausea & Vomiting 10/28/16 10:15 11/27/16 10:14 Pantoprazole (Protonix) 40 mg DAILY ORAL 10/29/16 09:00 11/28/16 08:59 10/30/16 09:40 Polyethylene Glycol (Miralax) 17 gm DAILYPRN PRN ORAL Constipation 10/28/16 10:15 11/27/16 10:14 Risperidone (RisperDAL) 1 mg BID ORAL 10/28/16 18:00 11/27/16 17:59 10/30/16 09:40 Spironolactone (Aldactone) 25 mg DAILY ORAL 10/28/16 18:00 11/27/16 17:59 10/30/16 09:39 Temazepam (Restoril) 15 mg HSPRN PRN ORAL Insomnia 10/28/16 10:15 11/04/16 10:14 JAXON HOLLINGSWORTH Oct 30, 2016 12:02
--- NOTE | 2016-10-30 12:49 | Cardiology Progress Note ---
Assessment/Plan Problem List: (1) Acute CHF (congestive heart failure) Status: stable, progressing Status Narrative Acute on chronic systolic heart failure - Minimal diuresis, based on wts, i/os Probable nonischemic cardiomyopathy. Renal insufficiency - Cr has improved from 1.5 to 1.1 today Assessment/Plan Continue current lisinopril, aldactone. Titrate coreg. followup labs in am. Pt may need icd if EF remains < 35% after optimization of med therapy w/ FIDENCIO inhibitors, coreg, diuretics over the next 3 months. Subjective ROS Limited/Unobtainable: No Subjective Mr. Chambers reports intermittent dyspnea . No chest pain. Objective Last 24 Hour Vital Signs Date Time Temp Pulse Resp B/P Pulse Ox O2 Delivery O2 Flow Rate FiO2 10/30/16 09:40 119/76 10/30/16 09:39 100 119/76 10/30/16 07:44 96.3 100 20 119/76 100 Room Air 10/30/16 07:31 101 20 Room Air 10/30/16 04:00 97.0 95 22 112/75 100 Room Air 10/30/16 04:00 104 10/30/16 00:00 103 10/29/16 20:35 98 116/76 10/29/16 20:00 97.0 92 24 113/73 100 Room Air 10/29/16 20:00 102 10/29/16 19:05 91 20 Nasal Cannula 2.0 28 10/29/16 15:34 103 10/29/16 15:26 96.0 90 20 126/90 100 Room Air General Appearance: WD/WN, no apparent distress, alert EENT: PERRL/EOMI Neck: supple, no JVD Rhythm: NSR Cardiovascular: normal rate, regular rhythm, systolic murmur - ii/vi HSM along LSB radiating to apex, axilla, gallop/S3 Respiratory/Chest: lungs clear Abdomen: non tender, soft Extremities: no swelling Intake and Output 10/29/16 10/30/16 19:00 07:00 Intake Total 1120 ml Output Total 600 ml Balance 520 ml Intake Oral 1120 ml Output Urine Total 600 ml # Voids 3 # Bowel Movements 1 Laboratory Tests Test 10/29/16 14:00 10/30/16 10:00 Urine Color Pale yellow Urine Appearance Clear Urine pH 5 (4.5-8.0) Urine Specific [place] 1.015 (1.005-1.035) Urine Protein Negative (NEGATIVE) Urine Glucose (UA) Negative (NEGATIVE) Urine Ketones Negative (NEGATIVE) Urine Occult Blood Negative (NEGATIVE) Urine Nitrite Negative (NEGATIVE) Urine Bilirubin Negative (NEGATIVE) Urine Urobilinogen Normal MG/DL (0.0-1.0) Urine Leukocyte Esterase Negative (NEGATIVE) Urine RBC 0-2 /HPF (0 - 0) H Urine WBC 0-2 /HPF (0 - 0) Urine Squamous Epithelial Cells None /LPF (NONE/OCC) Urine Bacteria None /HPF (NONE) Urine Eosinophils None seen Urine Random Sodium 63 mmol/L Urine Potassium Timed 41 mmol/L White Blood Count 5.4 K/UL (4.8-10.8) Red Blood Count 3.93 M/UL (4.70-6.10) L Hemoglobin 10.4 G/DL (14.2-18.0) L Hematocrit 34.6 % (42.0-52.0) L Mean Corpuscular Volume 88 FL (80-99) Mean Corpuscular Hemoglobin 26.5 PG (27.0-31.0) L Mean Corpuscular Hemoglobin Concent 30.1 G/DL (32.0-36.0) L Red Cell Distribution Width 17.1 % (11.6-14.8) H Platelet Count 198 K/UL (150-450) Mean Platelet Volume 6.9 FL (6.5-10.1) Neutrophils (%) (Auto) 56.4 % (45.0-75.0) Lymphocytes (%) (Auto) 22.2 % (20.0-45.0) Monocytes (%) (Auto) 18.1 % (1.0-10.0) H Eosinophils (%) (Auto) 1.1 % (0.0-3.0) Basophils (%) (Auto) 2.2 % (0.0-2.0) H Sodium Level 134 mEQ/L (135-145) L Potassium Level 4.5 mEQ/L (3.4-4.9) Chloride Level 100 mEQ/L (98-107) Carbon Dioxide Level 22 mEQ/L (20-30) Anion Gap 12 (5-15) Blood Urea Nitrogen 31 mg/dL (7-23) H Creatinine 1.1 mg/dL (0.7-1.2) Estimat Glomerular Filtration Rate > 60 mL/min (>60) Glucose Level 89 mg/dL (74-106) Calcium Level 9.0 mg/dL (8.6-10.2) Total Bilirubin 0.9 mg/dL (0.0-1.2) Aspartate Amino Transf (AST/SGOT) 26 U/L (5-40) Alanine Aminotransferase (ALT/SGPT) 16 U/L (3-41) Alkaline Phosphatase 105 U/L (40-129) Troponin I < 0.30 ng/mL (<=0.30) Total Protein 6.6 g/dL (6.6-8.7) Albumin 3.6 g/dL (3.5-5.2) Globulin 3.0 g/dL Albumin/Globulin Ratio 1.2 (1.0-2.7) Microbiology Date/Time Source Procedure Growth Status 10/28/16 11:17 Nasal Nares MRSA Culture - Final NO METHICILLIN RESISTANT STAPH AUREUS... Complete 10/28/16 11:17 Rectum VRE Culture - Final NO VANCOMYCIN RESISTANT ENTEROCOCCUS ... Complete ISABEL DELACRUZ Oct 30, 2016 12:49
[2016-10-30] MEDS ORDERED: Nitroglycerin Subl 0.4mg tab (Bottle Of 25) SL PRN (13:30)
[2016-10-30] MEDS ORDERED: Diltiazem 25mg/5ml IV PRN (14:00)
[2016-10-30 14:21] VITALS: BP 122/76
[2016-10-30 16:00] VITALS: BP 122/84
[2016-10-30] MEDS ORDERED: DuoNeb 0.5-3(2.5)mg/3ml neb HHN PRN (17:00)
[2016-10-30 20:00] VITALS: BP 131/73
[2016-10-30] MEDS: Carvedilol 12.5mg tab ORAL SCH (20:30)
[2016-10-30] MEDS ORDERED: Carvedilol 12.5mg tab ORAL SCH (21:00)
[2016-10-31] VITALS: BP 112/73
[2016-10-31 04:00] VITALS: BP 117/80
[2016-10-31 06:56] LABS: BASOPHILS % (AUTO) 1.3 % (0.0-2.0); EOSINOPHILS % (AUTO) 1.4 % (0.0-3.0); MEAN CORPUSCULAR HEMOGLOBIN 27.8 PG (27.0-31.0); MEAN CORPUSCULAR HGB CONC 31.3 G/DL (32.0-36.0); MEAN CORPUSCULAR VOLUME 89 FL (80-99); MEAN PLATELET VOLUME 7.4 FL (6.5-10.1); MONOCYTES % (AUTO) 18.8 % (1.0-10.0); NEUTROPHILS % (AUTO) 49.6 % (45.0-75.0); PLATELET COUNT 161 K/UL (150-450); RED BLOOD COUNT 3.55 M/UL (4.70-6.10); RED CELL DISTRIBUTION WIDTH 17.4 % (11.6-14.8); WHITE BLOOD COUNT 4.5 K/UL (4.8-10.8)
[2016-10-31 07:28] LABS: HEMOGLOBIN A1C 5.8 % (< 6.0)
[2016-10-31 07:36] LABS: HEMOLYSIS 3; IRON 39 ug/dL (59-158); TOTAL IRON BINDING CAPACITY 436 ug/dL (250-400)
[2016-10-31 07:56] LABS: ALANINE AMINOTRANSFERASE 15 U/L (3-41); ALBUMIN/GLOBULIN RATIO 1.3 (1.0-2.7); ANION GAP 16 (5-15); ASPARTATE AMINO TRANSFERASE 24 U/L (5-40); CALCIUM 9.1 mg/dL (8.6-10.2); CARBON DIOXIDE 20 mEQ/L (20-30); CHLORIDE 100 mEQ/L (98-107); CREATININE 1.1 mg/dL (0.7-1.2); GLOMERULAR FILTRATION RATE > 60 mL/min (>60); HEMOLYSIS 3; POTASSIUM 4.5 mEQ/L (3.4-4.9); SODIUM 136 mEQ/L (135-145); TOTAL PROTEIN 6.5 g/dL (6.6-8.7)
[2016-10-31 07:57] LABS: CRP QUANT 0.3 mg/dL (< 0.5); MAGNESIUM 1.8 mg/dL (1.7-2.5); PHOSPHORUS 3.7 mg/dL (2.5-4.8); URIC ACID 7.7 mg/dL (3.0-7.5)
[2016-10-31 08:00] VITALS: BP 111/87
[2016-10-31 08:19] LABS: FERRITIN 38 ng/mL (10-230)
[2016-10-31] MEDS: Carvedilol 12.5mg tab ORAL SCH (08:33)
[2016-10-31] MEDS: Heparin 5000 units/ml inj SUBQ SCH (08:39)
[2016-10-31] MEDS ORDERED: Aspirin Baby 81mg ORAL SCH (09:00)
[2016-10-31] MEDS ORDERED: Lisinopril 20mg tab ORAL SCH (09:00)
[2016-10-31] MEDS ORDERED: Spironolactone 25mg tab ORAL SCH (09:00)
[2016-10-31] MEDS ORDERED: Miralax 17gm pkt ORAL PRN (10:15)
--- NOTE | 2016-10-31 10:31 | Diagnostic Imaging Report ---
Indication: Abnormal renal function tests Technique: Grayscale and duplex images of the kidneys, retroperitoneum, and bladder were obtained. Comparison:None Findings: Right kidney measures 11.5 cm in length. Left kidney measures 12 cm in length. Both kidneys demonstrate normal echogenicity. No hydronephrosis. No focal abnormality. Normal inferior vena cava. Bladder is normal. Prostate volume is 49 mL Impression: Negative for hydronephrosis 49 mL prostate volume.
--- NOTE | 2016-10-31 11:14 | Diagnostic Imaging Report ---
Indication: DYSPNEA Technique: One view of the chest Comparison: 10/22/16 Findings: Lungs and pleural space are clear. The heart is enlarged. Findings are unchanged Impression: Previously. 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
--- NOTE | 2016-10-31 11:53 | General Progress Note ---
Assessment/Plan Status: stable Assessment/Plan status; Renal Failure- Cr improved CHF , CardioMyopathy h/o MR TR HTN and Pul HTN Plan; adjust meds- Add isordil- One dose Lasix IV- 2D Echo Avoid Nephrotoxics- Urine studies Monitor renal parameters Optimize cardiac and pul status Subjective ROS Limited/Unobtainable: No Constitutional: Reports: malaise, weakness Allergies: Coded Allergies: HYDROMORPHONE (Verified Allergy, Unknown, 10/28/16) Objective Last 24 Hour Vital Signs Date Time Temp Pulse Resp B/P Pulse Ox O2 Delivery O2 Flow Rate FiO2 10/31/16 08:34 111/87 10/31/16 08:33 96 111/87 10/31/16 08:00 96.1 96 20 111/87 99 Nasal Cannula 10/31/16 07:52 98 19 Room Air 10/31/16 06:40 99 22 100 2.0 10/31/16 06:32 98 20 99 Nasal Cannula 2.0 10/31/16 06:32 28 10/31/16 04:00 97.5 98 19 117/80 98 Room Air 10/31/16 00:00 97.8 96 19 112/73 99 Room Air 10/30/16 20:30 99 131/73 10/30/16 20:00 97.8 99 20 131/73 100 Room Air 10/30/16 19:23 97 20 Room Air 10/30/16 16:00 97.9 95 18 122/84 98 Room Air 10/30/16 14:21 97.9 95 20 122/76 100 Room Air Intake and Output 10/30/16 10/31/16 19:00 07:00 Intake Total 1090 ml 320 ml Balance 1090 ml 320 ml Intake Oral 1090 ml 320 ml # Voids 4 3 # Bowel Movements 1 Laboratory Tests 10/31/16 04:50: White Blood Count 4.5L, Red Blood Count 3.55L, Hemoglobin 9.9L, Hematocrit 31.5L , Mean Corpuscular Volume 89, Mean Corpuscular Hemoglobin 27.8, Mean Corpuscular Hemoglobin Concent 31.3L, Red Cell Distribution Width 17.4H, Platelet Count 161, Mean Platelet Volume 7.4, Neutrophils (%) (Auto) 49.6, Lymphocytes (%) (Auto) 29.0, Monocytes (%) (Auto) 18.8H, Eosinophils (%) (Auto) 1.4, Basophils (%) (Auto) 1.3, Sodium Level 136, Potassium Level 4.5, Chloride Level 100, Carbon Dioxide Level 20, Anion Gap 16H, Blood Urea Nitrogen 25H, Creatinine 1.1, Estimat Glomerular Filtration Rate > 60, Glucose Level 97, Hemoglobin A1c 5.8, Uric Acid 7.7H, Calcium Level 9.1, Phosphorus Level 3.7, Magnesium Level 1.8, Iron Level 39L, Total Iron Binding Capacity 436H, Percent Iron Saturation 9L, Unsaturated Iron Binding 397H, Ferritin 38, Total Bilirubin 0.7, Gamma Glutamyl Transpeptidase 80H, Aspartate Amino Transf (AST/SGOT) 24, Alanine Aminotransferase (ALT/SGPT) 15, Alkaline Phosphatase 97, Total Creatine Kinase 195H, C-Reactive Protein, Quantitative 0.3, Pro-B-Type Natriuretic Peptide 1356H, Total Protein 6.5L, Albumin 3.7, Globulin 2.8, Albumin/Globulin Ratio 1.3, Vitamin B12 Level 613, Folate [Pending] Height (Feet): 6 Height (Inches): 5.00 Weight (Pounds): 206 General Appearance: no apparent distress Cardiovascular: tachycardia Respiratory/Chest: decreased breath sounds Abdomen: distended Objective other PE not changed ANTHONY CORNEJO Oct 31, 2016 11:53
[2016-10-31 12:00] VITALS: BP 116/75
[2016-10-31] MEDS ORDERED: Iron Sucrose 200 MG in NS 110 ML IVPB ONE (12:00)
[2016-10-31 14:00] VITALS: BP 116/75
[2016-10-31] MEDS ORDERED: 1/2 NS 1000ml IV ONE (14:13)
--- NOTE | 2016-10-31 14:44 | Pulmonology Progress Note ---
Assessment/Plan Problems: (1) Acute CHF (congestive heart failure) (2) ACS (acute coronary syndrome) (3) Homelessness (4) ATN (acute tubular necrosis) (5) History of asthma Assessment/Plan improving no new complains All medications and treatment were reviewed. med/surg dc home with outpatient f/u Subjective ROS Limited/Unobtainable: No Constitutional: Reports: no symptoms HEENT: Repors: no symptoms Respiratory: Reports: no symptoms Allergies: Coded Allergies: HYDROMORPHONE (Verified Allergy, Unknown, 10/28/16) Objective Last 24 Hour Vital Signs Date Time Temp Pulse Resp B/P Pulse Ox O2 Delivery O2 Flow Rate FiO2 10/31/16 14:00 116/75 10/31/16 13:02 97.3 10/31/16 12:00 97.3 90 20 116/75 93 Room Air 10/31/16 08:34 111/87 10/31/16 08:33 96 111/87 10/31/16 08:00 96.1 96 20 111/87 99 Nasal Cannula 10/31/16 07:52 98 19 Room Air 10/31/16 06:40 99 22 100 2.0 28 10/31/16 06:32 98 20 99 Nasal Cannula 2.0 28 10/31/16 06:32 28 10/31/16 04:00 97.5 98 19 117/80 98 Room Air 10/31/16 00:00 97.8 96 19 112/73 99 Room Air 10/30/16 20:30 99 131/73 10/30/16 20:00 97.8 99 20 131/73 100 Room Air 10/30/16 19:23 97 20 Room Air 10/30/16 16:00 97.9 95 18 122/84 98 Room Air Intake and Output 10/30/16 10/31/16 19:00 07:00 Intake Total 1090 ml 320 ml Balance 1090 ml 320 ml Intake Oral 1090 ml 320 ml # Voids 4 3 # Bowel Movements 1 Objective locked himself up in the bathroom this morning, security had to remove him from the bath room. right now very grumpy and doesn't want to talk Laboratory Tests 10/31/16 04:50: White Blood Count 4.5L, Red Blood Count 3.55L, Hemoglobin 9.9L, Hematocrit 31.5L , Mean Corpuscular Volume 89, Mean Corpuscular Hemoglobin 27.8, Mean Corpuscular Hemoglobin Concent 31.3L, Red Cell Distribution Width 17.4H, Platelet Count 161, Mean Platelet Volume 7.4, Neutrophils (%) (Auto) 49.6, Lymphocytes (%) (Auto) 29.0, Monocytes (%) (Auto) 18.8H, Eosinophils (%) (Auto) 1.4, Basophils (%) (Auto) 1.3, Sodium Level 136, Potassium Level 4.5, Chloride Level 100, Carbon Dioxide Level 20, Anion Gap 16H, Blood Urea Nitrogen 25H, Creatinine 1.1, Estimat Glomerular Filtration Rate > 60, Glucose Level 97, Hemoglobin A1c 5.8, Uric Acid 7.7H, Calcium Level 9.1, Phosphorus Level 3.7, Magnesium Level 1.8, Iron Level 39L, Total Iron Binding Capacity 436H, Percent Iron Saturation 9L, Unsaturated Iron Binding 397H, Ferritin 38, Total Bilirubin 0.7, Gamma Glutamyl Transpeptidase 80H, Aspartate Amino Transf (AST/SGOT) 24, Alanine Aminotransferase (ALT/SGPT) 15, Alkaline Phosphatase 97, Total Creatine Kinase 195H, C-Reactive Protein, Quantitative 0.3, Pro-B-Type Natriuretic Peptide 1356H, Total Protein 6.5L, Albumin 3.7, Globulin 2.8, Albumin/Globulin Ratio 1.3, Vitamin B12 Level 613, Folate [Pending] JAXON HOLLINGSWORTH Oct 31, 2016 14:44
--- NOTE | 2016-10-31 18:28 | Cardiology Report ---
APPROVED REPORT EKG Measurement Heart [id number] Normal sinus rhythm Septal infarct, age undetermined Prolonged QT Abnormal ECG
[2016-10-31] MEDS ORDERED: Iron Sucrose 100 MG in NS 55 ML IVPB SCH (21:00)
--- NOTE | 2016-11-01 08:13 | Discharge Summary ---
Discharge Summary Hospital Course Date of Admission Oct 28, 2016 at 09:40 Date of Discharge Oct 31, 2016 at 13:55 Admitting Diagnosis chf HPI Vasiliy Chambers is a 45 year old male who was admitted on Oct 28, 2016 at 09: 40 for Congestive Heart Failure Hospital Course dc summary #[id number] Discharge Medications Continued Medications: Aspirin* (Aspirin*) 81 Mg Tab.chew 81 MG ORAL DAILY, TAB Carvedilol* (Carvedilol*) 25 Mg Tablet 20 MG ORAL DAILY, TAB Furosemide* (Lasix*) 20 Mg Tablet 25 MG ORAL DAILY, TAB Lisinopril (Lisinopril*) 20 Mg Tablet 40 MG ORAL BID, TAB Risperidone* (Risperdal*) 1 Mg Tablet 1 MG PO BID, TAB Simvastatin (Zocor) 20 Mg Tablet 20 MG ORAL BEDTIME, TAB Discharge Condition Upon Discharge: stable Discharge Disposition Patient was discharged to Home (01) Discharge Diagnoses: Discharge Instructions Discharge Instructions Special Instructions I have been assigned to complete a D/C Summary on this account. I was not involved in the patient management Rhonda Lou NP ([facility]) Nov 01, 2016 08:13
--- NOTE | 2016-11-01 13:19 | Cardiology Report ---
APPROVED REPORT EXAM: Two-dimensional and M-mode echocardiogram with Doppler and color Doppler. INDICATION Left ventricular function M-Mode DIMENSIONS IVSd0.8 (0.7-1.1cm)Left Atrium (MM)5.1 (1.6-4.0cm) LVDd6.8 (3.5-5.6cm)Aortic Root3.2 (2.0-3.7cm) PWd0.9 (0.7-1.1cm)Aortic Cusp Exc.2.1 (1.5-2.0cm) LVDs6.3 (2.5-4.0cm) PWs0.7 cm Severe left ventricular enlargement. Global left ventricular wall hypokinesia with left ventricular ejection fraction estimated to be 20-25%. No evidence of left ventricular hypertrophy. Small posterior pericardial effusion. Severe bi-atrial enlargement by 2D. Moderate right ventricular enlargement by 2D. Focal aortic valve sclerosis with adequate cusp excursion Thickened mitral valve leaflets with decreased excursion. Mitral annulus and aortic root calcification. Pulmonic valve not well visualized. Normal tricuspid valve structure. IVC dilated at 2.9cm with no physiological collapse. RA pressure of 20mmHg. A color flow and spectral Doppler study was performed and revealed: Trace aortic regurgitation. Mild mitral regurgitation. Left ventricular diastolic dysfunction not obtainable due to A-FIB. Severe tricuspid regurgitation (3 Jets). Tricuspid systolic velocities suggests peak right ventricular systolic pressure of 59 mmHg Consistent with severe pulmonary hypertension. Pulmonic regurgitation present.
--- NOTE | 2016-11-02 06:46 | Discharge Summary 2 SIG ---
DATE OF ADMISSION: 10/28/2016 DATE OF DISCHARGE: 10/31/2016 REASON FOR ADMISSION: 45-year-old homeless male with history of hypertension, congestive heart failure, asthma, and bipolar disorder, presented to emergency room with complaints of chest pain. Apparently, he was in [facility], and was admitted for the same symptoms. According to the patient, he had negative workup, and after being stabilized, was discharged. However, according to the patient, he did not receive any medication. Since that time, he complained of bilateral leg swelling, chest discomfort, and intermittent shortness of breath. Workup in the emergency room revealed pro BNP of 2616. Urine tox screen was positive for marijuana and amphetamine. CK -521. Troponin was negative. EKG revealed normal sinus rhythm with prolonged QT. ADMITTING DIAGNOSIS: 1. Chest pain, 2. Possible acute coronary syndrome, 3. Acute CHF. BRIEF HOSPITAL STAY: The patient was admitted to telemetry floor. Echocardiogram revealed ejection fraction of 20% to 25%, right ventricular systolic pressure of 59 consistent with severe pulmonary hypertension as well as severe mitral regurgitation, severe tricuspid regurgitation. Facility Designer was consulted. According to master yacht, the patient needs to have medical management of congestive heart failure. The patient probably had nonischemic cardiomyopathy. Medical management was initiated with beta-ginger, FIDENCIO inhibitor, and diuretics. Heart failure medications were titrated as needed. Serial troponin x3 were negative. EKG revealed no acute ischemic changes. Therefore, the patient was ruled out for acute myocardial infarction. With IV diuretics, the patient clinically improved. However, the creatinine up to 1.5 on 10/29/2016 and BUN - 40. Lasix was held at that time. Steel Placer consult was requested. Steel Placer suggested to avoid nephrotoxic. Urine studies were performed. Renal parameters and electrolytes were closely monitored and replaced as needed. Nephrotoxics were avoided, particularly, the patient was counseled on avoidance of nonsteroidal anti-inflammatory drugs. Renal ultrasound was negative. No evidence of hydronephrosis. Normal echogenicity of bilateral kidneys. Creatinine down to 1.1, prior to discharge. Additional dose of Lasix x1 was given prior to discharge, and the patient was cleared fro discharge by nanotechnology engineering technician. ProBNP was trending down, prior to discharge from 2616 on admission to 1356. CK from initial 521 down to 195. Supplemental oxygen provided to keep pulse oximetry above 92%. Pulmonary toilet provided as needed. Chest x-ray was negative for any acute cardiopulmonary disease. Lipid panel was stable. Urine tox screen was positive for marijuana and amphetamines. baby formula worker spoke with the patient regarding placement and regarding drug addiction issue. The patient declined to discuss substance abuse or substance treatment. The patient desired to go home. He stated there was no need for 7th grade social studies teacher assessment. He stated that he already had an appointment tomorrow with the program promotions representative that provides government subsided apartments for homeless individuals, for apartment building located at [address] [place] [address] in [facility]. The patient stated, that he will be able to afford housing. Bus token was provided for the patient. The patient was stable for discharge. DISCHARGE DIAGNOSES: 1. Atypical chest pain, likely secondary to acute congestive heart failure exacerbation. 2. [id number] systolic congestive heart failure, improved. 3. Probably nonischemic cardiomyopathy. 4. Severe pulmonary hypertension. 5. Severe mitral regurgitation. 6. Severe tricuspid regurgitation. 7. Acute renal failure, likely secondary to diuretic, resolved. DISCHARGE INSTRUCTIONS: Follow up with the primary medical doctor. DISCHARGE MEDICATIONS: See medication reconciliation list. Prescription provided. Magaly Mujica M.D. I have been assigned to dictate discharge summary on this account and I was not involved in the patient's management. Rhonda Lou ([facility]) N.PCintia DR: CHAKA JOB#: [id number] CC: SAPPHIRE
== END 2016-10-31 13:55 | disposition home or self-care (01) | DRG 194 ==
LOC: EDBD 07:22 → EMR 08:24 → 2E 09:40 → EDBEDREQ 12:30 → 2E 10-29 16:30 → 3E 10-30 13:26
DX: I50.23 Acute on chronic systolic (congestive) heart failure (principal); N17.0 Acute kidney failure with tubular necrosis; I27.2 Other secondary pulmonary hypertension; J45.909 Unspecified asthma, uncomplicated; Z59.0 Homelessness; Z88.6 Allergy status to analgesic agent; F31.9 Bipolar disorder, unspecified; I08.1 Rheumatic disorders of both mitral and tricuspid valves; R07.89 Other chest pain; I42.9 Cardiomyopathy, unspecified; F17.200 Nicotine dependence, unspecified, uncomplicated; Z91.14 Patient's other noncompliance with medication regimen
CPT/HCPCS: 36415; 71010; 76775; 80048; 80053; 80061; 80300; 81001; 81003; 82550; 82553; 82607; 82728; 82746; 82977; 83036; 83540; 83550; 83690; 83735; 83880; 84100; 84133; 84300; 84443; 84484; 84550; 85025; 85610; 85730; 86140; 87081; 89050; 93005; 93306; 94640; 94664; J7620